=== PATIENT | male | born 1945 | race Caucasian/White ===

== ENCOUNTER 2016-02-20 06:01 | Inpatient (IN) | payer OTHER, MEDICARE ==
[2016-02-14 15:11] VITALS: BMI 25.1
[2016-02-20] MEDS ORDERED: ROPIVICAINE 0.2%/MORPH PF/KETOROLAC - 51ML DISP.SYRINGE IA ONE ×2 (06:42→08:49)
[2016-02-20] MEDS ORDERED: TRANEXAMIC ACID 1000 MG/10 ML VIAL IVPUSH ONE (06:42)
[2016-02-20] MEDS ORDERED: oxyCODONE HCL 10 MG SUSTAINED ACTING TABLET PO ONE (06:42)
[2016-02-20] MEDS ORDERED: GABAPENTIN 300 MG CAPSULE (FP) PO ONE (06:42)
[2016-02-20] MEDS ORDERED: CEFAZOLIN 2 GM/D5W 50 ML IVPB ONE (06:42)
[2016-02-20] MEDS ORDERED: CELECOXIB 200 MG CAPSULE PO ONE (06:42)
[2016-02-20] MEDS ORDERED: CELECOXIB 200 MG CAPSULE ONE (06:47)
[2016-02-20] MEDS ORDERED: GABAPENTIN 300 MG CAPSULE (FP) ONE (06:47)
[2016-02-20] MEDS ORDERED: DEXAMETHASONE SOD PHOSPHATE/PF 10 MG/ML SDV ONE (06:53)
[2016-02-20] MEDS ORDERED: MIDAZOLAM HCL 2 MG/2 ML SINGLE DOSE VIAL ONE (06:53)
[2016-02-20] MEDS ORDERED: SODIUM CHLORIDE 0.9% P/F 10 ML VIAL IJ ONE (06:54)
[2016-02-20] MEDS ORDERED: LIDOCAINE 1% P/F 10 MG/ML VIAL ONE (06:54)
[2016-02-20] MEDS ORDERED: ROPIVACAINE HCL 0.5% 30ML VIAL ONE (06:54)
[2016-02-20] MEDS ORDERED: ceFAZolin SODIUM 1 GM VIAL ONE (07:30)
--- NOTE | 2016-02-20 08:15 | HP ---
Admitting History and Physical - Admission Chief Complaint: right knee OA History of Present Illness: 70yo male with hx of right knee OA. Seen in office and treated nonop initially. Failed conservative management so indicated for total knee replacement. Also see full medical H&P in chart from PCP History Source: Patient, Family Member, Medical Record Limitations to Obtaining History: No Limitations - Past Surgical History Past Surgical History: Yes: Joint Replacement Additional Past Surgical History: total hip replacement 2008 - Smoking History Smoking history: Never smoked - Alcohol/Substance Use Hx Alcohol Use: No Home Medications - Allergies Allergies/Adverse Reactions: Allergies Allergy/AdvReac Type Severity Reaction Status Date / Time No Known Allergies Allergy Verified 02/14/16 15:03 - Home Medications Home Medications: Ambulatory Orders Aspirin [Aspirin EC] 81 mg PO Q48H 02/14/16 Latanoprost 2.5 ml OU HS 02/14/16 Meloxicam [Mobic] 15 mg PO BID 02/14/16 Pravastatin Sodium [Pravachol (Nf)] 40 mg PO HS 02/14/16 Physical Examination Vital Signs: Vital Signs Temperature 98.7 F 02/20/16 06:30 Pulse Rate 82 02/20/16 06:30 Respiratory Rate 18 02/20/16 06:30 Blood Pressure 113/74 02/20/16 06:30 O2 Sat by Pulse Oximetry (%) Constitutional: Yes: Well Nourished, No Distress, Calm Eyes: Yes: WNL, Conjunctiva Clear HENT: Yes: WNL, Atraumatic, Normocephalic Neck: Yes: WNL, Supple Cardiovascular: Yes: WNL, Regular Rate and Rhythm Respiratory: Yes: WNL, Regular Gastrointestinal: Yes: WNL, Soft ...Rectal Exam: Yes: Deferred Extremities: Yes: WNL Edema: No Peripheral Pulses WNL: Yes Integumentary: Yes: WNL Neurological: Yes: WNL, Alert, Oriented ...Motor Strength: WNL Psychiatric: Yes: WNL, Alert, Oriented Labs: reviewed in chart Imaging - Results X-ray: Image Reviewed Problem List - Problems (1) Osteoarthritis of right knee Code(s): M17.9 - OSTEOARTHRITIS OF KNEE, UNSPECIFIED Qualifiers: Osteoarthritis type: primary Qualified Code(s): M17.11 - Unilateral primary osteoarthritis, right knee Assessment/Plan 70yo male for right TKA
[2016-02-20] MEDS ORDERED: ONDANSETRON 4 MG/2 ML VIAL IVPUSH PRN (08:40)
[2016-02-20] MEDS ORDERED: oxyCODONE HCL 5 MG TABLET PO PRN ×3 (08:40)
[2016-02-20] MEDS ORDERED: ROPIVACAINE 0.2% 400ML 400 ML ML NR ONE (08:40)
[2016-02-20] MEDS ORDERED: PROMETHAZINE HCL 25 MG/1 ML VIAL IVPUSH PRN (08:40)
[2016-02-20] MEDS ORDERED: DEXAMETHASONE SOD PHOSPHATE 4 MG/1 ML VIAL ONE (09:11)
[2016-02-20] MEDS ORDERED: PROPOFOL 20 ML ONE (09:57)
[2016-02-20] MEDS ORDERED: GABAPENTIN 300 MG CAPSULE (FP) PO SCH (10:00)
[2016-02-20] MEDS ORDERED: ONDANSETRON 4 MG/2 ML VIAL ONE (10:35)
[2016-02-20] MEDS ORDERED: MAGNESIUM HYDROX 2400MG/30ML ORAL SUSPENSION 30 ML CUP PO PRN (11:09)
[2016-02-20] MEDS ORDERED: MAG HYDROX/AL HYDROX/SIMETH 30 ML UNIT-DOSE CUP PO PRN (11:09)
--- NOTE | 2016-02-20 11:09 | OP ---
Operative Note - Note: Operative Date: 02/20/16 Operation: right total knee replacement Post-Operative Diagnosis: Same as Pre-op Surgeon: Harman Carrera Automobile Salesman: Raimundo Duckworth Anesthesia: Spinal Estimated Blood Loss (mls): 50
[2016-02-20] MEDS ORDERED: LACTATED RINGERS SOLUTION 1,000 ML IV SCH (11:15)
--- NOTE | 2016-02-20 11:16 | SURG ---
Surgery Building Pressure Washer Note Building Pressure Washer: Raimundo Duckworth PA-C Date of Service: 02/20/16 Diagnosis: Right knee osteoarthritis/DJD Procedure: Right total knee replacement I was present for the entirety of the operative procedure. For further detail, please refer to operative report. Visit type - Case Type Case Type: Scheduled Admission - New patient This patient is new to me today: Yes Date on this admission: 02/20/16
[2016-02-20] MEDS: KETOROLAC TROMETHAMINE 30 MG/1 ML VIAL IVPUSH SCH ×2 (11:30→23:30)
[2016-02-20] MEDS: ACETAMINOPHEN 1000 MG/100 ML VIAL (NON FORMULARY) IVPB ONE (11:30)
[2016-02-20] MEDS: traMADol HCL 50 MG TABLET PO SCH ×2 (12:00→23:00)
[2016-02-20] MEDS ORDERED: ONDANSETRON 4 MG/2 ML VIAL IVPB PRN (15:00)
[2016-02-20] MEDS: CEFAZOLIN 2 GM/D5W 50 ML IVPB SCH (15:57)
[2016-02-20] MEDS: ATORVASTATIN CA 10 MG TABLET (FP) PO SCH (21:56)
[2016-02-20] MEDS: SENNOSIDES/DOCUSATE COMBO (SENNA PLUS) TABLET (UD) PO SCH (21:56)
[2016-02-20] MEDS: GABAPENTIN 300 MG CAPSULE (FP) PO SCH (21:56)
[2016-02-20] MEDS: oxyCODONE HCL 10 MG SUSTAINED ACTING TABLET PO SCH (21:56)
[2016-02-20] MEDS: ASCORBIC ACID 500 MG TABLET (FP) PO SCH (21:56)
[2016-02-20] MEDS: FERROUS SO4 325 MG TABLET (FP) PO SCH (21:56)
[2016-02-20] MEDS ORDERED: LATANOPROST 0.005% OPHTH SOLN 2.5ML BOTTLE OU SCH (22:00)
[2016-02-20] MEDS ORDERED: CELECOXIB 200 MG CAPSULE PO SCH (22:00)
[2016-02-21] MEDS: CEFAZOLIN 2 GM/D5W 50 ML IVPB SCH
[2016-02-21] MEDS: traMADol HCL 50 MG TABLET PO SCH ×4 (05:21→23:37)
[2016-02-21] MEDS: KETOROLAC TROMETHAMINE 30 MG/1 ML VIAL IVPUSH SCH (05:35)
[2016-02-21] MEDS: ACETAMINOPHEN 325 MG TABLET (FP) PO SCH ×4 (06:21→17:33)
[2016-02-21] MEDS: ASPIRIN 325 MG TABLET PO SCH (08:17)
[2016-02-21 08:47] LABS: MCH 30.7 pg (25.7-33.7); MCHC 32.3 g/dl (32.0-35.9); MEAN PLT VOLUME 8.3 fl (7.5-11.1); PLATELET COUNT 259 K/MM3 (134-434); RDW 11.9 % (11.9-15.9); WHITE BLOOD COUNT 14.7 K/mm3 (4.0-10.0)
[2016-02-21] MEDS: LACTATED RINGERS SOLUTION 1,000 ML IV SCH (09:00)
[2016-02-21 09:01] LABS: CALCIUM 9.2 mg/dl (8.4-10.2); CREATININE 1.5 mg/dl (0.6-1.3)
--- NOTE | 2016-02-21 11:19 | PN ---
Progress Note (short form) - Note Progress Note: Pt seen and examined. Comfortable. No complaints. AVSS Selected Entries 02/21/16 04:43 Temperature 97.6 F Pulse Rate 68 Respiratory 20 Rate Blood Pressure 120/56 O2 Sat by Pulse 96 Oximetry (%) Oxygen Delivery Room Air Method Laboratory Tests 02/21/16 02/21/16 07:00 07:00 WBC 14.7 H Hgb 12.0 Hct 37.2 Plt Count 259 Sodium 138 Potassium 4.7 Chloride 101 Carbon Dioxide 28 Anion Gap 9 BUN 27 H Creatinine 1.5 H Random Glucose 112 H Calcium 9.2 Gen: NAD RLE: c/d/i, NVID A/P 70 yo male POD#1 s/p R TKA 1. PT/OOB - WBAT RLE 2. Increased Cr - d/c Celebrex, encourage PO intake. PM BMP 3. Plan for d/c home tomorrow Problem List - Problems (1) Osteoarthritis of right knee Code(s): M17.9 - OSTEOARTHRITIS OF KNEE, UNSPECIFIED Qualifiers: Osteoarthritis type: primary Qualified Code(s): M17.11 - Unilateral primary osteoarthritis, right knee
[2016-02-21] MEDS: oxyCODONE HCL 10 MG SUSTAINED ACTING TABLET PO SCH ×2 (11:20→21:52)
[2016-02-21] MEDS: FERROUS SO4 325 MG TABLET (FP) PO SCH ×2 (11:27→21:52)
[2016-02-21] MEDS: SENNOSIDES/DOCUSATE COMBO (SENNA PLUS) TABLET (UD) PO SCH ×2 (11:28→21:51)
[2016-02-21] MEDS: PANTOPRAZOLE 40 MG TABLET (FP) PO SCH (11:28)
[2016-02-21] MEDS: GABAPENTIN 300 MG CAPSULE (FP) PO SCH ×2 (11:28→21:50)
[2016-02-21] MEDS: ASCORBIC ACID 500 MG TABLET (FP) PO SCH ×2 (11:28→21:51)
[2016-02-21] MEDS: MULTIVITAMINS (DAILY MVI) TABLET (FP) PO SCH (11:28)
--- NOTE | 2016-02-21 13:33 | PN ---
Progress Note (short form) - Note Progress Note: S: 70 y/o M s/p R TKR POD 1. Pt w/o pain, very comfortable O: VSS. AC catheter site c/d/i. A: No anesthetic complications P: Continue to follow, d/c catheter tomorrow.
[2016-02-21] MEDS ORDERED: SODIUM CHLORIDE 500 ML IV STA (13:46)
--- NOTE | 2016-02-21 15:08 | SPEC ---
DATE OF OPERATION: 02/20/2016 PREOPERATIVE DIAGNOSIS: Right knee osteoarthritis. POSTOPERATIVE DIAGNOSIS: Right knee osteoarthritis. PROCEDURE: Right total knee replacement. ATTENDING PHYSICIAN: Gayle Thorpe MD AUTOMOTIVE BUYER: MADDY Daniels ANESTHESIA: Spinal plus sedation. ESTIMATED BLOOD LOSS: 50 mL. TOURNIQUET TIME: 120 minutes. COMPLICATIONS: None. SPECIMENS: Resected bone was sent for pathology analysis. IMPLANTS USED: [place] Triathlon 58 femoral component, size 7 tibial component, 32-mm patellar component, and 11-mm posterior-stabilized polyethylene component. DISPOSITION: The patient was transferred to the PACU in stable condition. INDICATIONS: This is a 70-year-old male who presented to the office complaining of severe right knee pain. He was seen and examined by Dr. Thorpe and diagnosed with right knee osteoarthritis. He was initially treated nonoperatively and failed conservative management. He was subsequently indicated for a total knee replacement. The risks, benefits, and alternatives of the procedure were explained to the patient in great detail, and he elected to proceed with the surgery. DESCRIPTION OF PROCEDURE: On the day of surgery, the patient was taken to the operating room and placed on the OR table. Spinal anesthesia was administered by the anesthesiologist. The patient was then positioned supine on the table and all bony prominences were padded. A nonsterile tourniquet was placed on the proximal thigh. The knee was then prepped and draped in the usual sterile fashion and intravenous antibiotics were given for infection prophylaxis. A surgical time-out was then performed with the team, and the patients identity, procedure, side, availability of implants, and the administration of antibiotics was confirmed. The leg was then elevated and exsanguinated, and the tourniquet was inflated. With the knee flexed, a midline incision was made and carried down through the subcutaneous fat to the underlying retinaculum. A medial parapatellar arthrotomy was performed. This was followed by a subperiosteal dissection of the tissue off the proximal, medial tibia. A portion of fat pad was removed from under the patellar tendon, and a small portion of fat was excised off the distal supracondylar femur. The knee was then flexed further and the anterior horn of the lateral meniscus was released from the midline. Next, the anterior and posterior cruciate ligaments were transected. Osteophytes were removed from both the femur and tibia. Grade 4 changes were noted diffusely throughout the knee. Hohmann retractors were then placed around the distal femur. The starting drill was used to enter the intramedullary canal. The starting point had been chosen by checking the radiographs and anatomy. Proper alignment and intramedullary placement was then confirmed by placing the long narrow che into the femur. Next, the distal femoral cutting guide was adjusted to 6 degrees of valgus and pinned to the femur. The bone resection was assessed using an ruth-wing. An approximately 10mm distal cut was made and the cut pieces measured. Once this was complete, the sizing guide was used to determine which size femoral component should be used. Next, the appropriately sized 4-in-1 cutting block was then placed at the correct amount of external rotation and the ruth wing was used to assure that there would be no notching of the anterior cortex of the femur. Once this was done, Hohmann retractors were used to protect the medial and lateral collateral ligaments, and all appropriate bone cuts were made. Attention was then turned to the tibia. Hohmann retractors were used to translate the tibia anteriorly and protect the collateral ligaments. The medial and lateral menisci were removed. The extramedullary tibial alignment guide was then placed and adjusted for rotation, varus/valgus, and slope. The height of the cutting block was adjusted to the level of the desired bone resection and then pinned in place. The proximal tibia was then cut with a saw and the bone was removed and measured. Once this was completed, trial components were placed and the knee was taken through a full range of motion. Soft tissue balance was assessed in both flexion and extension and found to be appropriate. The knee was stable throughout the full range of motion. The knee was then put into extension and the patella everted. The synovium around the patella was circumscribed with electrocautery. A caliper was used to measure the patellar thickness and a saw was then used to resect the patella at the chondro-osseous junction. The cut surface was then sized and drilled for the appropriate patellar button, with care taken to medialize it. A trial patella was then placed and the knee was again taken through a full range of motion. The knee was found to have both good balance and good patellar tracking. All of the components were removed except the tibial base plate. The appropriate instrumentation was used to drill and punch the proximal tibia for the keel of the final component. All bony surfaces were then cleaned with pulsatile lavage and dried. Bone cement was then prepared on the back table, and final components were cemented in place in the usual fashion. Extruded cement was removed. The polyethylene trial was placed, the knee was put into extension, and axial pressure was applied for compression while the cement hardened. The patellar button was similarly cemented into place. Once the cement had hardened, the knee was taken through a full range of motion to assess stability, balance, and patellar tracking. This was found to be optimal and the trial polyethylene was exchanged for the appropriately sized real implant. The wound was then thoroughly irrigated with normal saline. No. 1 Polysorb and 0 VLoc 180 barbed sutures were used to close the arthrotomy. No. 1 Polysorb and 2-0 Polysorb sutures were used in the subcutaneous tissues. The skin was closed using both 3-0 VLoc 90 suture in a running subcuticular fashion and SwiftSet skin adhesive. Once this was completed a sterile Aquacel dressing and compressive Jass-wrap was applied. The tourniquet was then deflated and the patient was awakened and taken to the PACU in stable condition. ADDENDUM: At the conclusion of the case, after final implants were placed, a 3-minute dilute Betadine lavage was performed according to the BERNE protocol. After this, normal saline pulsatile lavage was used to thoroughly irrigate the wound, and wound closure was begun. GAYLE THORPE M.D. [id number]
[2016-02-21 20:11] LABS: CALCIUM 8.9 mg/dl (8.4-10.2); CREATININE 1.4 mg/dl (0.6-1.3)
[2016-02-21] MEDS: ATORVASTATIN CA 10 MG TABLET (FP) PO SCH (21:52)
[2016-02-22] MEDS: ACETAMINOPHEN 325 MG TABLET (FP) PO SCH ×2 (00:06→05:54)
[2016-02-22] MEDS: KETOROLAC TROMETHAMINE 30 MG/1 ML VIAL IVPUSH SCH (00:33)
[2016-02-22] MEDS: LACTATED RINGERS SOLUTION 1,000 ML IV SCH ×2 (00:34→09:14)
[2016-02-22] MEDS: ACETAMINOPHEN 1000 MG/100 ML VIAL (NON FORMULARY) IVPB ONE (00:34)
[2016-02-22] MEDS: oxyCODONE HCL 10 MG SUSTAINED ACTING TABLET PO SCH ×2 (00:34→09:14)
[2016-02-22] MEDS: traMADol HCL 50 MG TABLET PO SCH ×2 (05:53→10:54)
[2016-02-22 06:07] VITALS: BP 107/61; PULSE 67; TEMP 97.6
[2016-02-22] MEDS: ASPIRIN 325 MG TABLET PO SCH (07:57)
--- NOTE | 2016-02-22 08:01 | PN ---
Progress Note (short form) - Note Progress Note: Pt seen and examined. Comfortable. No complaints. AVSS Selected Entries 02/22/16 03:00 Temperature 97.6 F Pulse Rate 67 Respiratory 19 Rate Blood Pressure 107/61 Laboratory Tests 02/21/16 02/22/16 02/22/16 18:00 07:36 07:36 WBC Pending Sodium 137 Pending Potassium 4.6 Chloride 103 Carbon Dioxide 27 Anion Gap 7 L BUN 25 H Creatinine 1.4 H Random Glucose 121 H Gen: NAD RLE: c/d/i, NVID A/P 70 yo male POD#2 s/p R TKA 1. PT/OOB - WBAT RLE 2. d/c home today Problem List - Problems (1) Osteoarthritis of right knee Code(s): M17.9 - OSTEOARTHRITIS OF KNEE, UNSPECIFIED Qualifiers: Osteoarthritis type: primary Qualified Code(s): M17.11 - Unilateral primary osteoarthritis, right knee
[2016-02-22 08:15] LABS: MCHC 32.6 g/dl (32.0-35.9); MEAN PLT VOLUME 8.2 fl (7.5-11.1); PLATELET COUNT 211 K/MM3 (134-434); RDW 12.3 % (11.9-15.9); WHITE BLOOD COUNT 11.2 K/mm3 (4.0-10.0)
[2016-02-22 08:22] LABS: CALCIUM 8.7 mg/dl (8.4-10.2); CREATININE 1.1 mg/dl (0.6-1.3)
[2016-02-22] MEDS: FERROUS SO4 325 MG TABLET (FP) PO SCH (09:13)
[2016-02-22] MEDS: MULTIVITAMINS (DAILY MVI) TABLET (FP) PO SCH (09:13)
[2016-02-22] MEDS: ASCORBIC ACID 500 MG TABLET (FP) PO SCH (09:13)
[2016-02-22] MEDS: PANTOPRAZOLE 40 MG TABLET (FP) PO SCH (09:13)
[2016-02-22] MEDS: SENNOSIDES/DOCUSATE COMBO (SENNA PLUS) TABLET (UD) PO SCH (09:13)
[2016-02-22] MEDS: GABAPENTIN 300 MG CAPSULE (FP) PO SCH (09:14)
--- NOTE | 2016-02-23 11:56 | PATH ---
Surgical Pathology Report Patient Name: OFE RUSSELL Med. Rec. #: [id number] /Age/Gender: 1945 (Age: 70) / M Account: [id number] Location: [facility] MED-SURG Taken: 02/20/2016 Received: 02/20/2016 Reported: 02/23/2016 Physicians: Harman Carrera M.D. Specimen(s) Received BONE RIGHT KNEE Clinical History Right knee osteoarthritis Final Diagnosis KNEE, RIGHT, BONE, TOTAL KNEE REPLACEMENT: DEGENERATIVE JOINT DISEASE. Electronically Signed Velia Andrade M.D. Gross Description Received in formalin, labeled "bone right knee," is a 13.5 x 12.5 x 3.5 cm aggregate of multiple irregular portions of bone and soft tissue. The tibial plateau measures 9.3 x 6.3 x 2.0 cm. There is a 2.4 cm in greatest dimension area of eburnation present. The remaining articular surfaces are rosenthal-yellow and focally granular. The underlying trabecular bone is yellow and hard. [place] [employer] sections are submitted in one cassette, following decalcification. /02/21/201602/21/2016
== END 2016-02-22 10:55 | disposition home health service (06) | DRG 470 ==
LOC: FM/S 06:01
PROVIDERS: ADMIT Student in an Organized Health Care Education/Training Program; ATTEND Student in an Organized Health Care Education/Training Program
PROC: 0SRC0J9 Replacement of Right Knee Joint with Synthetic Substitute, Cemented, Open Approach (ICD-10-PCS; principal; 2016-02-20 08:58)
DX: M17.11 Unilateral primary osteoarthritis, right knee (principal); E78.00 Pure hypercholesterolemia, unspecified
CPT/HCPCS: 36415; 73560-TC-RT; 80048; 85027; 88304-TC; 88311-TC; 94010; 94760; 97116-GP; 97163-GP

== ENCOUNTER 2017-02-18 05:55 | Inpatient (IN) | payer OTHER, MEDICARE ==
[2017-02-14 12:29] VITALS: BMI 24.4
[2017-02-18] MEDS ORDERED: TRANEXAMIC ACID 1000 MG/10 ML VIAL IVPUSH ONE (06:41)
[2017-02-18] MEDS ORDERED: CEFAZOLIN 2 GM in DEXTROSE 5%-WATER - 50 ML IVPB ONE (06:41)
[2017-02-18] MEDS ORDERED: ROPIVICAINE 0.2%/MORPH PF/KETOROLAC - 51ML DISP.SYRINGE IA ONE (06:41)
[2017-02-18] MEDS ORDERED: BUPIVACAINE HCL/PF 0.5% (5MG/ML) 10 ML VIAL ONE (06:53)
[2017-02-18] MEDS ORDERED: DEXAMETHASONE SOD PHOSPHATE/PF 10 MG/ML SDV ONE (07:03)
[2017-02-18] MEDS ORDERED: MIDAZOLAM HCL 2 MG/2 ML SINGLE DOSE VIAL ONE ×2 (07:04→07:06)
[2017-02-18] MEDS: CELECOXIB 200 MG CAPSULE PO ONE ×2 (07:05→14:20)
[2017-02-18] MEDS ORDERED: SODIUM CHLORIDE 0.9% P/F 10 ML VIAL IJ ONE (07:05)
[2017-02-18] MEDS: PANTOPRAZOLE 40 MG TABLET (FP) PO ONE ×2 (07:05→14:21)
[2017-02-18] MEDS: GABAPENTIN 300 MG CAPSULE (FP) PO ONE ×2 (07:05→14:20)
[2017-02-18] MEDS: oxyCODONE HCL 10 MG SUSTAINED ACTING TABLET PO ONE ×2 (07:05→14:20)
[2017-02-18] MEDS ORDERED: PROPOFOL 20 ML ONE ×4 (07:06)
[2017-02-18] MEDS ORDERED: SUCCINYLCHOLINE CHLORIDE 200 MG/10 ML VIAL ONE (07:06)
[2017-02-18] MEDS ORDERED: VANCOMYCIN 1,000 MG VIAL (RESTRICTED TO ID ONLY) ONE (07:25)
[2017-02-18] MEDS ORDERED: ceFAZolin SODIUM 1 GM VIAL ONE ×2 (07:25→08:41)
--- NOTE | 2017-02-18 07:47 | HP ---
Admitting History and Physical - Admission Chief Complaint: left knee osteoarthritis x years History of Present Illness: 71 year old male presents regarding his left knee. Longstanding history of left knee osteoarthritis. Patient complains of difficulty ambulating, limited ROM, pain stiffness and difficulty with ADLs. Patient has trialled and failed all conservative treatments including PO medication, activity modification, injections and exercise program. As patient has failed all conservative treatment measures, patient would like to proceed with a left total knee arthroplasty. History Source: Patient - Past Medical History Cardiovascular: Yes: Hyperlipdemia ENT: Yes: Other - Past Surgical History Past Surgical History: Yes: Joint Replacement Additional Past Surgical History: See written H&P - Smoking History Smoking history: Former smoker Have you smoked in the past 12 months: No If you are a former smoker, when did you quit?: 20 years ago - Alcohol/Substance Use Hx Alcohol Use: Yes (socially) Home Medications - Allergies Allergies/Adverse Reactions: Allergies Allergy/AdvReac Type Severity Reaction Status Date / Time No Known Allergies Allergy Verified 02/14/17 12:12 - Home Medications Home Medications: Ambulatory Orders Latanoprost 1 drop OU HS 02/14/16 Atorvastatin Ca [Lipitor] 20 mg PO HS 02/14/17 Dorzolamide HCl [Trusopt 2%] 1 drop OU BID 02/14/17 Review of Systems - Review of Systems Musculoskeletal: reports: Crepitus (Left knee), Decreased ROM (Left knee), Joint Pain (Left Knee), Joint Swelling (Left Knee) Physical Examination Vital Signs: Vital Signs Temperature 97.5 F L 02/18/17 06:41 Pulse Rate 82 02/18/17 06:41 Respiratory Rate 16 02/18/17 06:41 Blood Pressure 112/70 02/18/17 06:41 O2 Sat by Pulse Oximetry (%) Constitutional: Yes: Well Nourished, No Distress Eyes: Yes: Conjunctiva Clear HENT: Yes: Atraumatic, Normocephalic Neck: Yes: Supple Cardiovascular: Yes: Regular Rate and Rhythm Respiratory: Yes: Regular Gastrointestinal: Yes: Soft ...Rectal Exam: Yes: Deferred Musculoskeletal: Yes: Joint Stiffness (left knee), Joint Swelling (left knee) Assessment/Plan 71 year old male presenting regarding his left knee. Longstanding history of left knee osteoarthritis. Patient complains of difficulty ambulating, limited ROM, pain stiffness and difficulty with ADLs. Patient has trialled and failed all conservative treatments including PO medication, activity modification, injections and exercise program. Pros, cons, risks, benefits and alternatives to a left total knee arthroplasty were discussed. Patient confirms his understanding and wishes to proceed with a left total knee arthroplasty.
[2017-02-18] MEDS ORDERED: ONDANSETRON 4 MG/2 ML VIAL ONE (08:41)
[2017-02-18] MEDS ORDERED: DEXAMETHASONE SOD PHOSPHATE 4 MG/1 ML VIAL ONE (08:41)
[2017-02-18] MEDS ORDERED: ONDANSETRON 4 MG/2 ML VIAL IVPUSH PRN ×2 (11:40→12:19)
[2017-02-18] MEDS ORDERED: PROMETHAZINE HCL 25 MG/1 ML VIAL IVPUSH PRN (11:40)
[2017-02-18] MEDS ORDERED: oxyCODONE HCL 5 MG TABLET PO PRN ×2 (11:40)
[2017-02-18] MEDS ORDERED: LACTATED RINGERS SOLUTION 1,000 ML IV SCH ×2 (11:45→12:30)
[2017-02-18] MEDS ORDERED: MAGNESIUM HYDROX 2400MG/30ML ORAL SUSPENSION 30 ML CUP PO PRN (12:19)
[2017-02-18] MEDS ORDERED: MAG HYDROX/AL HYDROX/SIMETH 30 ML UNIT-DOSE CUP PO PRN (12:19)
--- NOTE | 2017-02-18 12:19 | OP ---
Operative Note - Note: Operative Date: 02/18/17 Pre-Operative Diagnosis: Left knee OA Operation: Left TKA Post-Operative Diagnosis: Same as Pre-op Surgeon: Harman Carrera Cigarette Package Examiner: Minna Almonte Anesthesia: Spinal Estimated Blood Loss (mls): 100
[2017-02-18] MEDS ORDERED: ACETAMINOPHEN 1000 MG/100 ML VIAL (NON FORMULARY) IVPB ONE (12:22)
[2017-02-18] MEDS ORDERED: CEFAZOLIN 1 GM/D5W 1 GM/50 ML BAG ONE (12:33)
[2017-02-18] MEDS: ACETAMINOPHEN 325 MG TABLET (FP) PO SCH ×3 (14:22→23:45)
[2017-02-18] MEDS: KETOROLAC TROMETHAMINE 30 MG/1 ML VIAL IVPUSH SCH ×2 (14:23→17:50)
[2017-02-18] MEDS: traMADol HCL 50 MG TABLET PO SCH ×2 (14:23→17:50)
[2017-02-18] MEDS: CEFAZOLIN 2 GM/D5W 2 GM/50 ML ML IVPB SCH (17:51)
[2017-02-18] MEDS ORDERED: DEXAMETHASONE SOD PHOSPHATE 10 MG/1 ML VIAL IVPB ONE (20:00)
[2017-02-18] MEDS ORDERED: PT OWN MED DRAWER 7, Y5N ONE (21:13)
[2017-02-18] MEDS: ATORVASTATIN CA 20 MG TABLET (FP) PO SCH (21:44)
[2017-02-18] MEDS: oxyCODONE HCL 10 MG SUSTAINED ACTING TABLET PO SCH (21:44)
[2017-02-18] MEDS: ASCORBIC ACID 500 MG TABLET (FP) PO SCH (21:45)
[2017-02-18] MEDS: GABAPENTIN 300 MG CAPSULE (FP) PO SCH (21:45)
[2017-02-18] MEDS: CELECOXIB 200 MG CAPSULE PO SCH (21:45)
[2017-02-18] MEDS: SENNOSIDES/DOCUSATE COMBO (SENNA PLUS) TABLET (UD) PO SCH (21:45)
[2017-02-18] MEDS ORDERED: GABAPENTIN 300 MG CAPSULE (FP) PO SCH (22:00)
[2017-02-18] MEDS: LATANOPROST 0.005% OPHTH SOLN 2.5ML BOTTLE OU SCH (22:58)
[2017-02-18] MEDS: DORZOLAMIDE 2% HCL OPHTHALMIC SOLUTION 10 ML BOTTLE OU SCH (22:58)
[2017-02-19] MEDS: CEFAZOLIN 2 GM/D5W 2 GM/50 ML ML IVPB SCH (02:00)
[2017-02-19] MEDS: KETOROLAC TROMETHAMINE 30 MG/1 ML VIAL IVPUSH SCH ×2 (05:42)
[2017-02-19] MEDS: ACETAMINOPHEN 325 MG TABLET (FP) PO SCH ×3 (05:43→17:38)
[2017-02-19] MEDS: traMADol HCL 50 MG TABLET PO SCH ×4 (05:44→17:38)
[2017-02-19] MEDS: ASPIRIN 325 MG TABLET PO SCH (08:05)
[2017-02-19 08:59] LABS: HEMATOCRIT 38.9 % (35.4-49); HEMOGLOBIN 13.1 GM/dl (11.7-16.9); MCH 32.5 pg (25.7-33.7); MCHC 33.7 g/dl (32.0-35.9); MEAN CELL VOLUME 96.6 fl (80-96); MEAN PLT VOLUME 8.9 fl (7.5-11.1); PLATELET COUNT 248 K/MM3 (134-434); RBC 4.03 M/mm3 (4.00-5.60); RDW 12.1 % (11.9-15.9); WHITE BLOOD COUNT 16.9 K/mm3 (4.0-10.8)
[2017-02-19 09:38] LABS: ANION GAP 7 (8-16); BLOOD UREA NITROGEN 33 mg/dl (7-18); CALCIUM 9.4 mg/dl (8.4-10.2); CHLORIDE 108 mmol/L (98-107); CO2 24 mmol/L (22-28); CREATININE 1.3 mg/dl (0.6-1.3); GLUCOSE,RANDOM 136 mg/dl (74-106); POTASSIUM 5.3 mmol/L (3.5-5.1); SODIUM 139 mmol/L (136-145)
[2017-02-19] MEDS: CELECOXIB 200 MG CAPSULE PO SCH ×2 (09:41→21:31)
[2017-02-19] MEDS: MULTIVITAMINS (DAILY MVI) TABLET (FP) PO SCH (09:41)
[2017-02-19] MEDS: oxyCODONE HCL 10 MG SUSTAINED ACTING TABLET PO SCH ×2 (09:42→21:31)
[2017-02-19] MEDS: SENNOSIDES/DOCUSATE COMBO (SENNA PLUS) TABLET (UD) PO SCH ×2 (09:42→21:30)
[2017-02-19] MEDS: PANTOPRAZOLE 40 MG TABLET (FP) PO SCH (09:42)
[2017-02-19] MEDS: GABAPENTIN 300 MG CAPSULE (FP) PO SCH ×2 (09:42→21:30)
[2017-02-19] MEDS: ASCORBIC ACID 500 MG TABLET (FP) PO SCH ×2 (09:42→21:31)
[2017-02-19] MEDS: DORZOLAMIDE 2% HCL OPHTHALMIC SOLUTION 10 ML BOTTLE OU SCH ×2 (10:00→21:33)
--- NOTE | 2017-02-19 11:16 | PN ---
Progress Note (short form) - Note Progress Note: 71F POD1 s/p left TKR under spinal anesthetic with peripheral nerve blocks for post operative pain. Pt states that pain is well controlled, reports no anesthetic complications. Sensory and motor function intact in bilateral lower extremities.
--- NOTE | 2017-02-19 13:24 | DS ---
Physical Examination Vital Signs: Vital Signs Temperature 97.9 F 02/19/17 06:09 Pulse Rate 61 02/19/17 06:09 Respiratory Rate 18 02/19/17 08:05 Blood Pressure 97/58 02/19/17 06:09 O2 Sat by Pulse Oximetry (%) 98 02/19/17 08:05 Labs: CBC, BMP 02/19/17 08:00 02/19/17 08:00 Discharge Summary Reason For Visit: OSTEOARTHRITIS OF LEFT KNEE Current Active Problems Osteoarthritis of left knee (Acute) Procedures: Principal: left TKA Hospital Course: Admitted for elective surgery. Procedure performed without complications. Pt received postoperative antibiotic prophylaxis and DVT ppx. Ambulated with physical therapy. Stable for discharge home with outpatient followup. Condition: Stable - Instructions Diet, Activity, Other Instructions: Dr. Carrera - Knee Replacement Instructions Keep the Aquacel dressing on until removed by Dr. Carrera in 10-14 days - it is antibacterial and waterproof and you can shower with it on. Call the office for a follow-up appointment with Dr. Carrera in 10-14 days. [phone] Take one Aspirin 325mg daily for 6 weeks to prevent blood clots in your legs. Take one Pantoprazole 40mg daily for 6 weeks to protect against heartburn and ulcers. Take Celebrex 200mg once daily for 30 days to reduce swelling and inflammation. Take a multivitamin, stool softener, and extra vitamin C supplement daily. Take Cephalexin 500mg 3 times a day (breakfast/lunch/dinner) for 14 days to prevent wound infection while the skin incision heals. For pain: *Mild pain (1-3/10): Take 1 Tramadol tablet every 4 hours as needed. Moderate pain (4-6/10): Take 1 Tramadol tablet and 1 Percocet tablet every 4 hours as needed. Severe pain (7-10/10): Take 1 Tramadol tablet and 2 Percocet tablets every 4 hours as needed. THE ANESTHESIOLOGIST PERFORMED A LONG-ACTING NERVE BLOCK TO NUMB YOUR KNEE BEFORE THE SURGERY. THIS WILL LAST FOR 2-3 DAYS. YOUR LEVEL OF PAIN MAY INCREASE WHEN THIS WEARS OFF, PROBABLY AROUND SATURDAY. Activity: You can put as much weight on the operative leg as you want. Right after you get home, there will be a physical therapist coming to your house to help you walk around and bend/straighten your knee. After your follow-up appointment, you will be sent for more intensive outpatient physical therapy which will include machines and equipment that the home therapist cannot bring to your house. Always use a walker or cane for balance and to prevent falls. Disposition: VNS/HOME HEALTH CARE - Home Medications Comprehensive Discharge Medication List: Ambulatory Orders Latanoprost 1 drop OU HS 02/14/16 Atorvastatin Ca [Lipitor] 20 mg PO HS 02/14/17 Dorzolamide HCl [Trusopt 2% -] 1 drop OU BID 02/14/17 Ascorbic Acid [Vitamin C -] 500 mg PO BID tablet 02/19/17 Aspirin [ASA -] 325 mg PO DAILY@0800 tablet 02/19/17 Celecoxib [CeleBREX -] 200 mg PO DAILY #30 capsule 02/19/17 Cephalexin [Keflex] 500 mg PO TID #42 capsule 02/19/17 Multivitamins [Multivit ([facility] Formulary)] 1 tab PO DAILY tab 02/19/17 Oxycodone HCl/Acetaminophen [Percocet 5-325 mg Tablet] 1 - 2 tab PO Q4H PRN #60 tablet MDD 8 02/19/17 Pantoprazole Sodium [Protonix -] 40 mg PO DAILY #40 tablet.ec 02/19/17 Sennosides/Docusate Sodium [Pericolace -] 2 tablet PO BID tablet 02/19/17 Tramadol HCl [Ultram -] 50 mg PO Q4H PRN #90 tablet MDD 6 02/19/17
--- NOTE | 2017-02-19 16:32 | SPEC ---
DATE OF OPERATION: 02/18/2017 PREOPERATIVE DIAGNOSIS: Left knee osteoarthritis. POSTOPERATIVE DIAGNOSIS: Left knee osteoarthritis. PROCEDURE: Left total knee replacement. ATTENDING: Gayle Thorpe M.D. GAS WELDER: Paris Pemberton ANESTHESIA: Spinal plus sedation. ESTIMATED BLOOD LOSS: 100 mL. COMPLICATIONS: None. DISPOSITION: The patient was transferred to the PACU in stable condition. INDICATION: This is a 71-year-old male with a history of bilateral knee osteoarthritis which was severe. He underwent a right total knee replacement 1 year ago and did well postoperatively. The left one continued to be painful, and he had failed conservative management and elected to proceed with a left total knee replacement since the right was feeling so much better. The risks, benefits, and alternatives to the procedure were explained to the patient in great detail, and he elected to proceed with the surgery. On the day of surgery, the patient was taken to the operating room and placed on the OR table. Spinal anesthesia was administered by the anesthesiologist. The patient was then positioned supine on the table and all bony prominences were padded. A nonsterile tourniquet was placed on the proximal thigh. The knee was then prepped and draped in the usual sterile fashion and intravenous antibiotics were given for infection prophylaxis. A surgical time-out was then performed with the team, and the patients identity, procedure, side, availability of implants, and the administration of antibiotics was confirmed. The leg was then elevated and exsanguinated, and the tourniquet was inflated. With the knee flexed, a midline incision was made and carried down through the subcutaneous fat to the underlying retinaculum. A medial parapatellar arthrotomy was performed. This was followed by a subperiosteal dissection of the tissue off the proximal, medial tibia. A portion of fat pad was removed from under the patellar tendon, and a small portion of fat was excised off the distal supracondylar femur. The knee was then flexed further and the anterior horn of the lateral meniscus was released from the midline. Next, the anterior and posterior cruciate ligaments were transected. Osteophytes were removed from both the femur and tibia. Grade 4 changes were noted diffusely throughout the knee. Hohmann retractors were then placed around the distal femur. The starting drill was used to enter the intramedullary canal. The starting point had been chosen by checking the radiographs and anatomy. Proper alignment and intramedullary placement was then confirmed by placing the long narrow che into the femur. Next, the distal femoral cutting guide was adjusted to 6 degrees of valgus and pinned to the femur. The bone resection was assessed using an ruth-wing. An approximately 10mm distal cut was made and the cut pieces measured. Once this was complete, the sizing guide was used to determine which size femoral component should be used. Next, the appropriately sized 4-in-1 cutting block was then placed at the correct amount of external rotation and the ruth wing was used to assure that there would be no notching of the anterior cortex of the femur. Once this was done, Hohmann retractors were used to protect the medial and lateral collateral ligaments, and all appropriate bone cuts were made. Attention was then turned to the tibia. Hohmann retractors were used to translate the tibia anteriorly and protect the collateral ligaments. The medial and lateral menisci were removed. The extramedullary tibial alignment guide was then placed and adjusted for rotation, varus/valgus, and slope. The height of the cutting block was adjusted to the level of the desired bone resection and then pinned in place. The proximal tibia was then cut with a saw and the bone was removed and measured. Once this was completed, trial components were placed and the knee was taken through a full range of motion. Soft tissue balance was assessed in both flexion and extension and found to be appropriate. The knee was stable throughout the full range of motion. The knee was then put into extension and the patella everted. The synovium around the patella was circumscribed with electrocautery. A caliper was used to measure the patellar thickness and a saw was then used to resect the patella at the chondro-osseous junction. The cut surface was then sized and drilled for the appropriate patellar button, with care taken to medialize it. A trial patella was then placed and the knee was again taken through a full range of motion. The knee was found to have both good balance and good patellar tracking. All of the components were removed except the tibial base plate. The appropriate instrumentation was used to drill and punch the proximal tibia for the keel of the final component. All bony surfaces were then cleaned with pulsatile lavage and dried. Bone cement was then prepared on the back table, and final components were cemented in place in the usual fashion. Extruded cement was removed. The polyethylene trial was placed, the knee was put into extension, and axial pressure was applied for compression while the cement hardened. The patellar button was similarly cemented into place. Once the cement had hardened, the knee was taken through a full range of motion to assess stability, balance, and patellar tracking. This was found to be optimal and the trial polyethylene was exchanged for the appropriately sized real implant. The wound was then thoroughly irrigated with normal saline. No. 1 Polysorb and 0 VLoc 180 barbed sutures were used to close the arthrotomy. No. 1 Polysorb and 2-0 Polysorb sutures were used in the subcutaneous tissues. The skin was closed using both 3-0 VLoc 90 suture in a running subcuticular fashion and SwiftSet skin adhesive. Once this was completed a sterile Aquacel dressing and compressive Jass-wrap was applied. The tourniquet was then deflated and the patient was awakened and taken to the PACU in stable condition. ADDENDUM: After final implants were placed, the knee was thoroughly irrigated with normal saline. The pulsatile lavage and a 3-minute dilute Betadine lavage was performed. Following this, the knee was again lavaged and wound closure was begun. GAYLE THORPE M.D. [id number]
[2017-02-19] MEDS: ATORVASTATIN CA 20 MG TABLET (FP) PO SCH (21:29)
[2017-02-19] MEDS: LATANOPROST 0.005% OPHTH SOLN 2.5ML BOTTLE OU SCH (21:32)
--- NOTE | 2017-02-19 22:55 | PN ---
Progress Note (short form) - Note Progress Note: Pt seen and examined. Doing exceptionally well. Walked 800+ feet today. AVSS Selected Entries 02/19/17 14:00 Temperature 97.3 F L Pulse Rate 73 Respiratory 19 Rate Blood Pressure 120/94 O2 Sat by Pulse 99 Oximetry (%) Laboratory Tests 02/19/17 02/19/17 08:00 08:00 WBC 16.9 H D Hct 38.9 MCV 96.6 H Plt Count 248 Sodium 139 Potassium 5.3 H Chloride 108 H Carbon Dioxide 24 Anion Gap 7 L BUN 33 H D Creatinine 1.3 Random Glucose 136 H D Calcium 9.4 Gen: NAD LLE: c/d/i, NVID A/P 71yo male POD#1 s/p left TKA 1. PT/OOB - WBAT LLE 2. D/C home in AM after PT - f/u in office in 10-14 days
[2017-02-20] MEDS: ACETAMINOPHEN 325 MG TABLET (FP) PO SCH ×3 (00:15→11:20)
[2017-02-20] MEDS: traMADol HCL 50 MG TABLET PO SCH ×2 (00:16→06:25)
[2017-02-20 06:15] VITALS: BP 103/51; PULSE 83; TEMP 97.9
[2017-02-20] MEDS: ASPIRIN 325 MG TABLET PO SCH (08:10)
[2017-02-20 08:31] LABS: HEMOGLOBIN 12.7 GM/dl (11.7-16.9); MCHC 34.2 g/dl (32.0-35.9); MEAN CELL VOLUME 96.3 fl (80-96); MEAN PLT VOLUME 8.7 fl (7.5-11.1); PLATELET COUNT 214 K/MM3 (134-434); RBC 3.84 M/mm3 (4.00-5.60); RDW 12.4 % (11.9-15.9); WHITE BLOOD COUNT 11.2 K/mm3 (4.0-10.8)
[2017-02-20 08:38] LABS: ANION GAP 6 (8-16); BLOOD UREA NITROGEN 31 mg/dl (7-18); CHLORIDE 108 mmol/L (98-107); CO2 26 mmol/L (22-28); CREATININE 1.1 mg/dl (0.6-1.3); GLUCOSE,RANDOM 106 mg/dl (74-106); SODIUM 140 mmol/L (136-145)
[2017-02-20] MEDS: CELECOXIB 200 MG CAPSULE PO SCH (10:10)
[2017-02-20] MEDS: GABAPENTIN 300 MG CAPSULE (FP) PO SCH (10:11)
[2017-02-20] MEDS: SENNOSIDES/DOCUSATE COMBO (SENNA PLUS) TABLET (UD) PO SCH (10:13)
[2017-02-20] MEDS: oxyCODONE HCL 10 MG SUSTAINED ACTING TABLET PO SCH (10:13)
[2017-02-20] MEDS: PANTOPRAZOLE 40 MG TABLET (FP) PO SCH (10:20)
[2017-02-20] MEDS: DORZOLAMIDE 2% HCL OPHTHALMIC SOLUTION 10 ML BOTTLE OU SCH (10:21)
[2017-02-20] MEDS: MULTIVITAMINS (DAILY MVI) TABLET (FP) PO SCH (11:20)
[2017-02-20] MEDS: ASCORBIC ACID 500 MG TABLET (FP) PO SCH (11:21)
--- NOTE | 2017-02-20 13:52 | PATH ---
Surgical Pathology Report Patient Name: OFE RUSSELL Med. Rec. #: [id number] /Age/Gender: 1945 (Age: 71) / M Account: [id number] Location: [facility] MED-SURG Taken: 02/18/2017 Received: 02/18/2017 Reported: 02/20/2017 Physicians: Harman Carrera M.D. Specimen(s) Received BONE LEFT KNEE Clinical History Left knee osteoarthritis Final Diagnosis BONE, LEFT KNEE, TOTAL KNEE REPLACEMENT: DEGENERATIVE JOINT DISEASE. Electronically Signed Velia Andrade M.D. Gross Description Received in formalin labeled "bone left knee," is an 11.0 x 10.0 x 2.3 cm aggregate of multiple irregular portions of bone and soft tissue. The tibial plateau measures 8.8 x 5.6 x 1.5 cm. There is a 4.4 cm in greatest dimension area of eburnation identified on one of the portions of bone. The remaining articular surfaces are rosenthal-yellow and diffusely granular. The underlying trabecular bone is yellow and hard. Button Riveter sections are submitted in one cassette, following decalcification. /02/19/201702/19/2017
== END 2017-02-20 11:23 | disposition home health service (06) | DRG 470 ==
LOC: FM/S 05:55
PROVIDERS: ADMIT Student in an Organized Health Care Education/Training Program; ATTEND Student in an Organized Health Care Education/Training Program
PROC: 0SRD0J9 Replacement of Left Knee Joint with Synthetic Substitute, Cemented, Open Approach (ICD-10-PCS; principal; 2017-02-18 08:54)
DX: M17.12 Unilateral primary osteoarthritis, left knee (principal); Z87.891 Personal history of nicotine dependence; E78.00 Pure hypercholesterolemia, unspecified
CPT/HCPCS: 36415; 73560-TC-LT; 80048; 85027; 88304-TC; 88311-TC; 94010; 94760; 97116-GP; 97162-GP

== ENCOUNTER 2019-03-27 07:48 | Day surgery (SDC) | payer OTHER, MEDICARE ==
[2019-03-25 16:18] VITALS: BMI 25.4
[2019-03-27 11:58] VITALS: BP 104/66; PULSE 68; TEMP 98.1
--- NOTE | 2019-03-30 10:34 | PATH ---
Surgical Pathology Report Patient Name: OFE RUSSELL [facility]. Rec. #: [id number] /Age/Gender: 1945 (Age: 73) / M Account: [id number] Location: U-ENDOSCOPY Taken: 03/27/2019 Received: 03/27/2019 Reported: 03/30/2019 Physicians: OLGA STREETER Specimen(s) Received A: ASCENDING COLON POLYP B: SIGMOID POLYP (COLD SNARE) Clinical History Colon cancer and polyp surveillance Postoperative diagnosis: Polyps, diverticulosis, hemorrhoids Final Diagnosis A. ASCENDING COLON, POLYP, BIOPSY: TUBULAR ADENOMA. B. SIGMOID, POLYP ,COLD SNARE POLYPECTOMY: TUBULAR ADENOMA. Electronically Signed Velia Andrade M.D. Gross Description A. Received in formalin, labeled "biopsy ascending colon" are 2 rosenthal, irregular portions of soft tissue measuring 0.2 and 0.3 cm. in greatest dimension. The specimens are submitted in toto in one cassette. B. Received in formalin labeled "sigmoid polyp," is a 0.8 x 0.6 x 0.3 cm rosenthal, polypoid portion of soft tissue. The specimen is submitted in toto in one cassette. 03/27/2019 saudi03/27/2019
== END 2019-03-27 11:00 | disposition home or self-care (01) ==
LOC: JASU-ENDO 07:48
PROVIDERS: ATTEND Internal Medicine Gastroenterology
PROC: 0DBK8ZX Excision of Ascending Colon, Via Natural or Artificial Opening Endoscopic, Diagnostic (ICD-10-PCS; 2019-03-27)
PROC: 0DBN8ZX Excision of Sigmoid Colon, Via Natural or Artificial Opening Endoscopic, Diagnostic (ICD-10-PCS; principal; 2019-03-27 09:30)
DX: Z12.11 Encounter for screening for malignant neoplasm of colon (principal); Z85.038 Personal history of other malignant neoplasm of large intestine; D12.2 Benign neoplasm of ascending colon; D12.5 Benign neoplasm of sigmoid colon; K57.30 Diverticulosis of large intestine without perforation or abscess without bleeding; K64.8 Other hemorrhoids
CPT/HCPCS: 88305-TC